=== PATIENT | female | born 1960 | race Caucasian/White ===

== ENCOUNTER → 2016-05-17 | Outpatient (CLI) | payer BC ==
[~2016-05-17] MED LIST: ADVIL200 MG PO; ARIMIDEX1 MG PO; CITRACAL PLUS1 TAB PO; EXCEDRIN1 TAB PO; JUICE PLUS WIT240 ML PO; LEVOTHYROXINE PO; LEVOXYL0.2 MG PO; MULTIPLE VITAMI1 TAB PO; PERCOCET 325 MG1 TA2 PO; SARAFEM10 M1 PO; SYNTHROID0.175 MG PO
== END ==
LOC: MC.RAD 08:46
DX: Z12.31 Encounter for screening mammogram for malignant neoplasm of breast (principal); D24.2 Benign neoplasm of left breast; Z85.3 Personal history of malignant neoplasm of breast

== ENCOUNTER 2016-08-10 05:29 | Day surgery (SDC) | payer BC ==
[~2016-08-10] VITALS: Ht 167.6 cm; Wt 63.1 kg
[2016-08-10] VITALS (10 sets, daily range): BP systolic 95–114; BP diastolic 51–67; PULSE 63–77; TEMP 97.7–98.1
[~2016-08-10 05:29] MED LIST changes: -ADVIL200 MG PO; -ARIMIDEX1 MG PO; -EXCEDRIN1 TAB PO; -PERCOCET 325 MG1 TA2 PO; -SYNTHROID0.175 MG PO
[2016-08-10] MEDS ORDERED: SYNTHROID0.175 MG PO (06:39)
[2016-08-10] MEDS ORDERED: ARIMIDEX1 MG PO (06:40)
[2016-08-10] MEDS ORDERED: ADVIL200 MG PO (06:40)
[2016-08-10] MEDS ORDERED: EXCEDRIN1 TAB PO (06:41)
[2016-08-10] MEDS ORDERED: PERCOCET 325 MG1 TA2 PO (10:57)
== END 2016-08-10 17:48 | disposition home or self-care (01) ==
LOC: SDCO 05:29
DX: K40.90 Unilateral inguinal hernia, without obstruction or gangrene, not specified as recurrent (principal); Z85.3 Personal history of malignant neoplasm of breast; E03.9 Hypothyroidism, unspecified
CPT/HCPCS: A4315; C1781; J0690; J1100; J1170; J1720; J1885; J2270; J2405; J2704; J2710; J3010; J7120

== ENCOUNTER → 2017-06-10 | Outpatient (CLI) | payer BC ==
[~2017-06-10] MED LIST changes: +ADVIL200 MG PO; +ARIMIDEX1 MG PO; +EXCEDRIN1 TAB PO; +PERCOCET 325 MG1 TA2 PO; +SYNTHROID0.175 MG PO
== END ==
LOC: MC.RAD 05-20 08:20
DX: Z12.31 Encounter for screening mammogram for malignant neoplasm of breast (principal)

== ENCOUNTER → 2018-06-11 | Outpatient (CLI) | payer BC | LOC: MC.RAD 09:39 | DX: Z12.31 Encounter for screening mammogram for malignant neoplasm of breast (principal); C50.412 Malignant neoplasm of upper-outer quadrant of left female breast; Z98.890 Other specified postprocedural states ==

== ENCOUNTER → 2018-12-10 | Outpatient (CLI) | payer SELFPAY | LOC: MC.RAD 13:57 | DX: Z12.31 Encounter for screening mammogram for malignant neoplasm of breast (principal) ==

== ENCOUNTER → 2019-08-26 | Outpatient (CLI) | payer BC | LOC: MC.RAD 07-03 14:00 | DX: Z12.31 Encounter for screening mammogram for malignant neoplasm of breast (principal); Z98.82 Breast implant status; Z98.890 Other specified postprocedural states ==

== ENCOUNTER → 2020-08-31 | Outpatient (CLI) | payer BC | LOC: MC.RAD 10:37 | DX: Z12.31 Encounter for screening mammogram for malignant neoplasm of breast (principal); N64.89 Other specified disorders of breast; Z85.3 Personal history of malignant neoplasm of breast ==

== ENCOUNTER → 2020-09-09 | Outpatient (CLI) | payer BC | LOC: MC.RAD 09-08 14:00 | DX: N60.01 Solitary cyst of right breast (principal); C50.412 Malignant neoplasm of upper-outer quadrant of left female breast; N64.89 Other specified disorders of breast; Z85.3 Personal history of malignant neoplasm of breast ==

== ENCOUNTER → 2021-02-01 | Outpatient (CLI) | payer BC | LOC: MC.RAD 14:15 | DX: C50.412 Malignant neoplasm of upper-outer quadrant of left female breast (principal); Z98.890 Other specified postprocedural states ==

== ENCOUNTER → 2021-10-17 | Outpatient (CLI) | payer BC | LOC: MC.RAD 13:47 | DX: Z12.31 Encounter for screening mammogram for malignant neoplasm of breast (principal); Z85.3 Personal history of malignant neoplasm of breast ==

== ENCOUNTER → 2023-03-12 | Outpatient (CLI) | payer BC ==
[2004-09-27 14:08] VITALS: BP 152/69; PULSE 74; TEMP 97.5
== END ==
LOC: MC.RAD 09:25
DX: Z12.31 Encounter for screening mammogram for malignant neoplasm of breast (principal); C50.412 Malignant neoplasm of upper-outer quadrant of left female breast